=== PATIENT | female | born 1965 | race African-American/Black ===

== ENCOUNTER 2022-01-22 21:58 | Inpatient (IN) | payer MEDICARE, MEDICAID ==
[~2022-01-22] VITALS: Ht 172.7 cm; Wt 75.3 kg
[~2022-01-22 21:58] MED LIST: AMI2 PO; AMIO100T4 PO; ASPI-986 PO; CARI350T27 PO; CLOP75TA33 PO; ESCI20TA37 PO; FURO40TA5 PO; GABA-532 PO; HYDR10SO4 PO; LISI2.5T47 PO; MEX150 PO; PROM473S4 PO; ROSU40TA PO; SPIR25TA6 PO; TRAZ-251 PO; VENL37.586 PO
[2022-01-22] MEDS ORDERED: ASPIRIN 81MG TABLET PO ONE (22:15)
[2022-01-22 23:19] LABS: HEMATOCRIT. 33.3 % (36.0-48.0); HEMOGLOBIN. 10.3 g/dL (12.0-16.0); MEAN CORPUSCULAR HEMOGLOBIN 23.7 pg (28.0-32.0); MEAN CORPUSCULAR VOLUME 76.4 fL (81.0-99.0); MEAN PLATELET VOLUME 8.3 fl (7.4-10.4); PLATELET 261 x1000/uL (130-400); RED BLOOD CELL COUNT 4.36 mill/uL (4.2-5.4)
[2022-01-22 23:26] LABS: CHLORIDE 108 mEq/L (98-107)
[2022-01-22] MEDS ORDERED: ASPIRIN 81MG TABLET PO NR (23:45)
[2022-01-23 00:14] LABS: PLATELET ESTIMATE NORMAL
[2022-01-23] MEDS: HYDROCODONE/ACETAMINOPHEN 10/325MG TABLET PO PRN ×4 (04:49→23:19)
[2022-01-23] MEDS ORDERED: ONDANSETRON HCL 4MG/2ML INJ IV PRN (10:45)
[2022-01-23] MEDS ORDERED: NALOXONE HCL 0.4MG/ML VIAL IV PRN (11:00)
[2022-01-23 12:00] VITALS: BP 112/67
[2022-01-23 15:42] VITALS: BP 112/67
[2022-01-23 16:00] VITALS: BP 105/56
[2022-01-23 20:00] VITALS: BP 120/83
[2022-01-24] VITALS: BP 110/74
[2022-01-24] MEDS ORDERED: LORAZEPAM 2MG/ML CPJ IV PRN (02:30)
[2022-01-24] MEDS ORDERED: LORAZEPAM 2MG/ML CPJ IM PRN (02:30)
[2022-01-24 03:52] VITALS: BP 108/65
[2022-01-24 08:00] VITALS: BP 104/76
[2022-01-24] MEDS: HYDROCODONE/ACETAMINOPHEN 10/325MG TABLET PO PRN ×3 (09:51→21:31)
[2022-01-24 12:00] VITALS: BP 96/59
[2022-01-24] MEDS: DIVALPROEX SODIUM 500MG DR TABLET PO SCH ×2 (13:15→21:22)
[2022-01-24] MEDS ORDERED: MAGNESIUM 2 G PREMIX 50 ML IV NR (14:30)
[2022-01-24 16:00] VITALS: BP 93/56
[2022-01-24] MEDS: POTASSIUM CHLORIDE 20MEQ TABLET SR PO SCH (16:41)
[2022-01-24] MEDS: AMIODARONE HCL 200 MG TABLET PO SCH (17:23)
[2022-01-24 20:00] VITALS: BP 103/57
[2022-01-24] MEDS: QUETIAPINE FUMARATE 50MG TABLET PO SCH (21:22)
[2022-01-25] VITALS: BP 98/58
[2022-01-25 04:00] VITALS: BP 86/50
[2022-01-25 06:12] LABS: CHLORIDE 107 mEq/L (98-107)
[2022-01-25] MEDS ORDERED: POTASSIUM CHLORIDE INJ 40 MEQ in DEXT 5% WATER 250 ML IV ONE (06:45)
[2022-01-25] MEDS ORDERED: POTASSIUM CHLORIDE 20MEQ TABLET SR PO NR (06:45)
[2022-01-25 08:00] VITALS: BP 90/57
[2022-01-25] MEDS: POTASSIUM CHLORIDE 20MEQ TABLET SR PO SCH (09:10)
[2022-01-25] MEDS: DIVALPROEX SODIUM 500MG DR TABLET PO SCH ×2 (09:11→20:53)
[2022-01-25] MEDS: AMIODARONE HCL 200 MG TABLET PO SCH ×3 (09:11→16:24)
[2022-01-25] MEDS: ACETAMINOPHEN 325MG TABLET PO PRN ×2 (09:58→18:32)
[2022-01-25] MEDS: KCL 20MEQ/100ML X 2 FOR TOTAL KCL 40MEQ/200ML IV SCH ×2 (09:58→10:00)
[2022-01-25 11:33] VITALS: BP 92/54
[2022-01-25] MEDS: HYDROCODONE/ACETAMINOPHEN 10/325MG TABLET PO PRN ×2 (14:05→20:54)
[2022-01-25 15:38] VITALS: BP 102/54
[2022-01-25 20:00] VITALS: BP 94/57
[2022-01-25] MEDS: QUETIAPINE FUMARATE 50MG TABLET PO SCH (20:52)
[2022-01-26] VITALS (7 sets, daily range): BP systolic 92–104; BP diastolic 56–66
[2022-01-26] MEDS: AMIODARONE HCL 200 MG TABLET PO SCH ×3 (09:30→18:05)
[2022-01-26] MEDS: POTASSIUM CHLORIDE 20MEQ TABLET SR PO SCH (09:31)
[2022-01-26] MEDS: DIVALPROEX SODIUM 500MG DR TABLET PO SCH ×2 (09:31→20:28)
[2022-01-26] MEDS: HYDROCODONE/ACETAMINOPHEN 10/325MG TABLET PO PRN ×2 (15:29→20:29)
[2022-01-26 15:54] LABS: CHLORIDE 106 mEq/L (98-107)
[2022-01-26] MEDS: QUETIAPINE FUMARATE 50MG TABLET PO SCH (20:28)
[2022-01-27] VITALS: BP 112/89
[2022-01-27] MEDS: HYDROCODONE/ACETAMINOPHEN 10/325MG TABLET PO PRN ×3 (03:16→20:49)
[2022-01-27 04:00] VITALS: BP 96/66
[2022-01-27 08:00] VITALS: BP 86/47
[2022-01-27 08:30] LABS: CHLORIDE 108 mEq/L (98-107)
[2022-01-27] MEDS: AMIODARONE HCL 200 MG TABLET PO SCH ×3 (08:32→18:58)
[2022-01-27] MEDS: POTASSIUM CHLORIDE 20MEQ TABLET SR PO SCH (08:32)
[2022-01-27] MEDS: DIVALPROEX SODIUM 500MG DR TABLET PO SCH ×2 (08:32→20:49)
[2022-01-27 12:00] VITALS: BP 99/59
[2022-01-27] MEDS ORDERED: AMI2 PO (12:33)
[2022-01-27] MEDS ORDERED: CARV3.1242 MT (12:33)
[2022-01-27] MEDS ORDERED: QUET50TA PO (12:33)
[2022-01-27] MEDS ORDERED: DIVA-18 PO (12:33)
[2022-01-27 16:00] VITALS: BP 98/48
[2022-01-27 16:45] LABS: UCG SCREEN NEGATIVE
[2022-01-27 20:00] VITALS: BP 98/63
[2022-01-27] MEDS: QUETIAPINE FUMARATE 50MG TABLET PO SCH (20:49)
[2022-01-28] VITALS (7 sets, daily range): BP systolic 87–96; BP diastolic 43–58
[2022-01-28] MEDS: HYDROCODONE/ACETAMINOPHEN 10/325MG TABLET PO PRN ×3 (06:11→20:00)
[2022-01-28] MEDS: AMIODARONE HCL 200 MG TABLET PO SCH ×3 (09:44→18:29)
[2022-01-28] MEDS: DIVALPROEX SODIUM 500MG DR TABLET PO SCH ×2 (09:44→20:00)
[2022-01-28] MEDS: POTASSIUM CHLORIDE 20MEQ TABLET SR PO SCH (09:44)
[2022-01-28] MEDS: QUETIAPINE FUMARATE 50MG TABLET PO SCH (09:44)
[2022-01-28] MEDS ORDERED: NALOXONE HCL 0.4MG/ML VIAL IV PRN (18:15)
== END 2022-01-28 22:45 | disposition home or self-care (01) | DRG 309 ==
LOC: ER 21:58 → 6WST 01-23 02:55 → ENRESERV 01-23 09:28
PROVIDERS: ADMIT Internal Medicine; ATTEND Internal Medicine
PROC: 4B02XTZ Measurement of Cardiac Defibrillator, External Approach (ICD-10-PCS; principal; 2022-01-24)
DX: I47.2 Ventricular tachycardia (principal); I50.22 Chronic systolic (congestive) heart failure; I42.9 Cardiomyopathy, unspecified; E87.6 Hypokalemia; I25.10 Atherosclerotic heart disease of native coronary artery without angina pectoris; F25.0 Schizoaffective disorder, bipolar type; I95.9 Hypotension, unspecified; F17.210 Nicotine dependence, cigarettes, uncomplicated; Z20.822 Contact with and (suspected) exposure to COVID-19; I11.0 Hypertensive heart disease with heart failure; F14.90 Cocaine use, unspecified, uncomplicated; Z95.5 Presence of coronary angioplasty implant and graft; Z95.810 Presence of automatic (implantable) cardiac defibrillator; I25.2 Old myocardial infarction; Z91.19 Patient's noncompliance with other medical treatment and regimen; Z71.51 Drug abuse counseling and surveillance of drug abuser
CPT/HCPCS: 36415; 71045; 80048; 80053; 81025; 83735; 83880; 84484; 85025; 93005; 99291; J2060; J3475; J3480; U0003; U0005